=== PATIENT | female | born 1930 | race Caucasian/White ===

== ENCOUNTER → 2017-02-24 | Outpatient (REF) | payer MEDICARE ==
[~2017-02-24] MED LIST: ASPI81CH PO; CALC600T31 PO; CALTTAB11 PO; CHLO125TA PO; COLA100C5 PO; LOSA25TA8 PO; SENN8.6T17 PO; SIMV20TA2 PO; SYMB80INH INH; VITA-122 PO
== END ==
LOC: M LAB REF 16:24
PROVIDERS: ATTEND Family Medicine
DX: E83.52 Hypercalcemia (principal)